=== PATIENT | female | born 1940 | race Caucasian/White ===

== ENCOUNTER → 2016-10-09 | Outpatient (CLI) | payer MEDICARE, OTHER ==
[~2016-10-09] MED LIST: ASPI325T6 PO; ASPIRIN E.C. 8181 MG PO; ATIVAN 1MG T1 MG/TAB PO; DITROPAN 5MG TAB5 MG PO; FENTANYL 50MCG TOP; FOLIC ACID 11 MG/TA1 PO; GLUCOPHAGE1000 MG PO; GLUCOPHAGE500 MG/TAB PO; IRON325 MG PO; KLONOPIN WAFER0.5 MG PO; KLOR-CON M2020 MEQ PO; LANTUS100 U/ML; LASIX 40MG TABL40 MG PO; MILK OF MA400 MG/5 M PO; MULTI VITAMINS1 TAB PO; NEURONTIN300 MG/CAP PO; NORCO 325 MG-7.1 TAB PO; NOVOLOG 100U100 U/M1 SQ; OMEGA 31000 MG PO; PAXIL 10MG10 MG PO; REQUIP 1MG T1 MG/TAB PO; ULTRAM 50MG TAB50 MG PO; VITAMIN D1000 IU PO; ZESTRIL 20MG TA20 MG PO; ZOCOR 80MG80 MG PO
== END ==
LOC: COL.RAD 10:30
DX: M25.78 Osteophyte, vertebrae (principal); M43.16 Spondylolisthesis, lumbar region; J90 Pleural effusion, not elsewhere classified; R16.0 Hepatomegaly, not elsewhere classified

== ENCOUNTER → 2016-11-20 | Outpatient (CLI) | payer MEDICARE, OTHER ==
[~2016-11-20] VITALS: Ht 157.5 cm; Wt 79.5 kg
== END ==
LOC: COL.RAD 06:37
DX: D37.6 Neoplasm of uncertain behavior of liver, gallbladder and bile ducts (principal); Z90.710 Acquired absence of both cervix and uterus; Z98.890 Other specified postprocedural states

== ENCOUNTER 2016-11-25 13:00 | Outpatient (CLI) | payer MEDICARE, OTHER ==
[~2016-11-25] VITALS: Ht 157.5 cm; Wt 82.5 kg
[2016-11-25] VITALS (15 sets, daily range): BP systolic 107–161; BP diastolic 55–111; PULSE 76–94
[2016-11-25 14:23] LABS: INR 1.2 (0.8-3.0); PROTHROMBIN TIME 12.8 SECONDS (9.7-12.8)
== END 2016-11-25 17:47 | disposition home or self-care (01) ==
LOC: COL.RAD 13:00
PROVIDERS: Radiology Diagnostic Radiology
DX: D37.6 Neoplasm of uncertain behavior of liver, gallbladder and bile ducts (principal)
CPT/HCPCS: J3010